=== PATIENT | female | born 1975 | race Caucasian/White ===

== ENCOUNTER 2025-02-11 09:50 | Outpatient (OUT) | payer OTHER, SELFPAY ==
[2025-02-11 11:19] LABS: Hematocrit 38.2 % (36.0-48.0); Hemoglobin 13.3 g/dL (12.0-16.0); Immature Granulocytes Abs Auto 0.01 10^3/uL (0.00-0.03); Immature Granulocytes Pct Auto 0.2 % (0.0-0.5); Lymphocytes Absolute Auto 1.7 10^3/uL (1.2-3.8); Mean Corpuscular HGB Conc 34.8 g/dL (29.9-35.2); Mean Corpuscular Hemoglobin 32.5 pg (26.7-34.0); Mean Corpuscular Volume 93.4 fL (81.0-99.0); Platelet Count 280 10^3/uL (150-450); Red Blood Count 4.09 10^6/uL (4.20-5.40); White Blood Count 4.4 10^3/uL (4.0-11.0)
[2025-02-11 12:09] LABS: Iron 72.0 ug/dL (50.0-170.0); Percent Iron Saturation 16.9 %; Total Iron Binding Capacity 427.0 ug/dL (250.0-450.0)
[2025-02-11 12:20] LABS: Alanine Aminotransferase 35 U/L (14-59); Albumin Globulin Ratio 1.1; Albumin Level 4.3 g/dL (3.4-5.0); Alkaline Phosphatase 94 U/L (46-116); Anion Gap 14.6; Aspartate Amino Transferase 20 U/L (15-37); Blood Urea Nitrogen 15.0 mg/dL (7.0-18.0); Calcium 9.2 mg/dL (8.5-10.1); Carbon Dioxide 26.5 mmol/L (21.0-32.0); Chloride 104 mmol/L (98-107); Cholesterol 198 mg/dL (<=200); Estimated GFR (African America >60 (>=60 mL/min/1.73m^2); Estimated GFR (Non-African Ame >60 (>=60 mL/min/1.73m^2); Free T3 2.17 pg/mL (2.18-3.98); Globulin 4.0 g/dL; Glucose 102 mg/dL (74-106); HDL Cholesterol 92 mg/dL (40-60); Magnesium 2.1 mg/dL (1.8-2.4); Potassium 4.1 mmol/L (3.5-5.1); Sodium 141 mmol/L (136-145); Thyroid Stimulating Hormone 0.418 uIU/mL (0.358-3.740); Total Protein 8.3 g/dL (6.4-8.2); Triglycerides 51 mg/dL (<=150); VLDL CHOLESTEROL 10.2 mg/dL
[2025-02-11 12:38] LABS: Ferritin 44.0 ng/mL (8.0-252.0); Folate 9.60 ng/mL (8.60-58.90)
[2025-02-12 04:07] LABS: Vitamin B12 742 pg/mL (232-1245)
[2025-02-12 08:11] LABS: C-Reactive Protein, Cardiac 0.90 mg/L (0.00-3.00)
[2025-02-15 03:09] LABS: Reverse T3, Serum 17.3 ng/dL (9.2-24.1)
== END 2025-02-11 09:51 | disposition home or self-care (01) ==
LOC: LAB 09:56
DX: R79.9 Abnormal finding of blood chemistry, unspecified (principal); E06.3 Autoimmune thyroiditis; F50.819 Binge eating disorder, unspecified; R19.4 Change in bowel habit; R20.8 Other disturbances of skin sensation; R42 Dizziness and giddiness; R53.83 Other fatigue; L65.9 Nonscarring hair loss, unspecified; G47.00 Insomnia, unspecified; D50.9 Iron deficiency anemia, unspecified; E66.3 Overweight; R52 Pain, unspecified; Z73.3 Stress, not elsewhere classified; E56.9 Vitamin deficiency, unspecified; R53.1 Weakness
CPT/HCPCS: 36415; 80053; 80061; 82306; 82525; 82533; 82607; 82728; 82746; 83036; 83090; 83525; 83540; 83550; 83735; 83789; 84255; 84436; 84439; 84443; 84480; 84481; 84482; 84630; 85025; 85652; 86038; 86140; 86376; 86800

== ENCOUNTER 2025-04-13 08:07 | Outpatient (OUT) | payer OTHER, SELFPAY ==
[2025-04-13 09:36] LABS: Anion Gap 13.9; Blood Urea Nitrogen 18.0 mg/dL (7.0-18.0); Carbon Dioxide 29.1 mmol/L (21.0-32.0); Chloride 100 mmol/L (98-107); Glucose 91 mg/dL (74-106); Potassium 4.0 mmol/L (3.5-5.1); Sodium 139 mmol/L (136-145)
[2025-04-13 09:37] LABS: Alanine Aminotransferase 31 U/L (14-59); Albumin Globulin Ratio 1.0; Albumin Level 4.1 g/dL (3.4-5.0); Alkaline Phosphatase 98 U/L (46-116); Aspartate Amino Transferase 22 U/L (15-37); Calcium 9.2 mg/dL (8.5-10.1); Cholesterol 179 mg/dL (<=200); Estimated GFR (African America >60 (>=60 mL/min/1.73m^2); Estimated GFR (Non-African Ame >60 (>=60 mL/min/1.73m^2); Globulin 4.0 g/dL; HDL Cholesterol 81 mg/dL (40-60); Total Protein 8.1 g/dL (6.4-8.2); Triglycerides 48 mg/dL (<=150); VLDL CHOLESTEROL 9.6 mg/dL
[2025-04-13 09:38] LABS: Free T3 2.27 pg/mL (2.18-3.98); Thyroid Stimulating Hormone 0.937 uIU/mL (0.358-3.740)
[2025-04-13 10:02] LABS: Iron 67.0 ug/dL (50.0-170.0); Percent Iron Saturation 17.2 %; Total Iron Binding Capacity 390.0 ug/dL (250.0-450.0)
[2025-04-13 10:39] LABS: Ferritin 46.0 ng/mL (8.0-252.0); Folate 31.00 ng/mL (8.60-58.90)
[2025-04-14 04:07] LABS: FSH 115.0 mIU/mL (.); Sex Horm Binding Glob, Serum 52.7 nmol/L (24.6-122.0)
[2025-04-14 05:07] LABS: Vitamin B12 972 pg/mL (232-1245)
[2025-04-14 07:11] LABS: C-Reactive Protein, Cardiac 0.84 mg/L (0.00-3.00)
== END 2025-04-13 08:08 | disposition home or self-care (01) ==
LOC: LAB 08:11
DX: R79.9 Abnormal finding of blood chemistry, unspecified (principal); R63.5 Abnormal weight gain; F50.819 Binge eating disorder, unspecified; R19.4 Change in bowel habit; R68.82 Decreased libido; R20.8 Other disturbances of skin sensation; R42 Dizziness and giddiness; R53.83 Other fatigue; L65.9 Nonscarring hair loss, unspecified; R51.9 Headache, unspecified; E03.9 Hypothyroidism, unspecified; D50.9 Iron deficiency anemia, unspecified; M25.50 Pain in unspecified joint; N95.1 Menopausal and female climacteric states; R41.3 Other amnesia; G47.9 Sleep disorder, unspecified; Z73.3 Stress, not elsewhere classified; E55.9 Vitamin D deficiency, unspecified
CPT/HCPCS: 36415; 80053; 80061; 82306; 82607; 82627; 82670; 82728; 82746; 83001; 83002; 83036; 83090; 83525; 83540; 83550; 84144; 84270; 84402; 84403; 84436; 84439; 84443; 84480; 84481; 84482; 86038; 86140; 86376; 86800